=== PATIENT | male | born 1965 | race Caucasian/White ===

== ENCOUNTER 2020-10-17 12:36 | Outpatient (CLI) | payer OTHER | END 2020-10-17 23:59 | disposition home or self-care (01) | LOC: RAD 12:36 | PROVIDERS: ATTEND Chiropractor | DX: S86.001A Unspecified injury of right Achilles tendon, initial encounter (principal); X58.XXXA Exposure to other specified factors, initial encounter; Y93.89 Activity, other specified; Y92.89 Other specified places as the place of occurrence of the external cause; Y99.8 Other external cause status ==